=== PATIENT | female | born 1985 | race Caucasian/White ===

== ENCOUNTER 2017-11-04 16:58 | Emergency (ER) | payer OTHER ==
[~2017-11-04] VITALS: Ht 170.2 cm; Wt 122.5 kg
[~2017-11-04 16:58] MED LIST: ADDERALL 30 MG30 MG; ADDERALL 30 MG30 MG PO; ALPRAZOLAM; AMBIEN 5 MG TABL5 M1 PO; AUGMENTIN 875875 M1 PO; BACTRIM DS TAB1 EACH PO; CHLORPROMAZINE100 MG PO; CLONAZEPAM 0.50.5 M1 PO; CLONAZEPAM PO; DIPHENHIST50 MG PO; FLEXERIL PO; HYDROCODON-ACE1 EAC7 PO; HYDROCODONE-AP1 EAC6 PO; IRON325 PO; KEFLEX500 MG PO; KLONOPIN1 MG PO; LAMICTAL100 MG PO; LEVAQUIN 500 M500 M4 PO; LEVOTHYROXIN0.075 MG PO; LOESTRIN1 EAC1 PO; MEDROLDOSEPACK PO; NORCO 5-325 TA1 EACH PO; PERCOCET 5-3251 EACH PO; PREDNISONE 20 M20 M1 PO; PREDNISONE 5 MG5 M1 PO; PRENATAL; PROAIR HFA8.5 GM INH; SYNTHROID100 MC1 PO; TESSALON PERLE100 M1 PO; TRAZODONE HCL100 MG PO; TUMS PO; VENTOLIN HFA INH8 GM INH; VITAMIN E400 UNIT PO; XANAX1 MG PO; ZANAFLEX4 MG PO
[2017-11-04] MEDS ORDERED: NAPROSYN500 MG PO ×3 (17:57→18:10)
[2017-11-04] MEDS ORDERED: NORCO 5-325 TA1 EACH PO ×3 (17:57→18:10)
[2017-11-04] MEDS ORDERED: FLEXERIL PO ×3 (17:57→18:10)
[2017-11-04 18:50] VITALS: BP 163/98
== END 2017-11-04 18:54 | disposition home or self-care (01) ==
LOC: M.ERS 16:58
DX: M25.511 Pain in right shoulder (principal); M79.671 Pain in right foot; F41.9 Anxiety disorder, unspecified; F31.9 Bipolar disorder, unspecified; E03.9 Hypothyroidism, unspecified; Z98.890 Other specified postprocedural states; F17.210 Nicotine dependence, cigarettes, uncomplicated; Z88.1 Allergy status to other antibiotic agents; W18.2XXA Fall in (into) shower or empty bathtub, initial encounter; Y93.89 Activity, other specified; Y92.89 Other specified places as the place of occurrence of the external cause; Y99.8 Other external cause status

== ENCOUNTER 2018-04-05 12:54 | Emergency (ER) | payer OTHER ==
[~2018-04-05] VITALS: Ht 170.2 cm; Wt 115.7 kg
[~2018-04-05 12:54] MED LIST changes: +NAPROSYN500 MG PO
[2018-04-05] MEDS ORDERED: TRAZODONE HCL100 MG PO (13:53)
[2018-04-05 14:17] LABS: URINE BILIRUBIN NEGATIVE (Negative); URINE BLOOD NEGATIVE (Negative); URINE CLARITY CLEAR; URINE COLOR YELLOW; URINE GLUCOSE-RANDOM NEGATIVE (Negative); URINE KETONES NEGATIVE (Negative); URINE LEUKOCYTES-REFLEX NEGATIVE (Negative); URINE NITRITE-REFLEX NEGATIVE (Negative); URINE PROTEIN NEGATIVE (Negative); URINE SPECIFIC GRAVITY 1.025 (1.005-1.030); URINE UROBILINOGEN 0.2 E.U./dl (0.2-1.0)
[2018-04-05 14:23] LABS: AMP/METHAMP Negative (Negative); BARBITURATES Negative (Negative); BENZODIAZEPINES POSITIVE (Negative); COCAINE Negative (Negative); METHADONE Negative (Negative); OPIATES Negative (Negative); PCP Negative (Negative); THC Negative (Negative)
[2018-04-05 14:37] LABS: ABSOLUTE BASOPHILS 0.2 thou/uL (0.0-0.2); ABSOLUTE EOSINOPHILS 0.1 thou/uL (0.0-0.7); ABSOLUTE LYMPHOCYTES 2.5 thou/uL (0.8-5.3); ABSOLUTE MONOCYTES 0.4 thou/uL (0.0-1.2); ABSOLUTE NEUTROPHILS 11.3 thou/uL (1.6-8.1); BASOPHILS 1.1 %; EOSINOPHILS 0.8 %; HEMOGLOBIN 12.8 gm/dL (12.0-15.0); LYMPHOCYTES 17.4 %; MCH 26.4 pg (26.0-34.0); MCHC 32.8 g/dL (28.0-37.0); MCV 80.5 fL (80.0-100.0); MONOCYTES 2.4 %; MPV 8.2 fl. (7.2-11.1); NUCLEATED RBCS 0 /100WBC; PLATELET COUNT* 369 thou/uL (150-400); POLYS 78.3 %; RBC 4.85 mil/uL (4.20-5.00); RDW-CV 14.7 % (10.5-14.5); WBC 14.4 thou/uL (4.0-11.0)
[2018-04-05 14:45] LABS: ANION GAP 6 mmol/L (7-16); BUN 9 mg/dL (7-18); CALCIUM 7.9 mg/dL (8.5-10.1); CHLORIDE 99 mmol/L (98-107); CO2 28 mmol/L (21-32); CREATININE 0.9 mg/dL (0.6-1.3); GLUCOSE 206 mg/dL (70-99); POTASSIUM 3.7 mmol/L (3.5-5.1); SODIUM 133 mmol/L (136-145)
[2018-04-05 14:52] LABS: ALBUMIN 3.1 g/dL (3.4-5.0); ALKALINE PHOSPHATASE 70 U/L (46-116); LIPASE 120 U/L (73-393); SGOT 8 U/L (15-37); SGPT 13 U/L (30-65); TOTAL BILIRUBIN 0.2 mg/dL (<0.1-1.0); TOTAL PROTEIN 6.4 g/dL (6.4-8.2); TROPONIN-I LEVEL <0.06 ng/mL (<0.06)
[2018-04-05 15:11] LABS: APTT 24.4 Seconds (25.0-31.3)
[2018-04-05 16:19] VITALS: BP 128/69
--- NOTE | 2018-04-06 15:29 | EKG ---
[place] [address] ELECTROCARDIOGRAM REPORT Name: LILLIAN ALVARADO Room: [facility]#: [id number] Admission: 04/05/18 Attend Phys: Discharge: 04/05/18 Date of : 83 Report #: [id number] THIS REPORT FOR: //name// [facility] Test Date: 2018-04-05 Test Time: 14:33:05 Pat Name: LILLIAN ALVARADO Department: Room: Gender: F Plater Supervisor: Layla MUSTAFA : 1985 Requested By: Cortney Casas Order Number: [id number] MD: Quique Martínez Measurements Intervals [place] Rate: 59 P: 5 CO: 154 QRS: 23 QRSD: 97 T: 36 QT: 450 QTc: 446 Interpretive Statements Sinus rhythm Baseline wander in lead(s) V2 Compared to ECG 03/23/2015 21:15:57 Sinus tachycardia no longer present Electronically Signed On 04-06-2018 15:29:10 FENCE MAKING MACHINE OPERATOR by Quiuqe Martínez [email or web address] <ELECTRONICALLY SIGNED> By: Quique Martínez MD, [facility] 04/06/18 1529 1433 1433 Quique Martínez MD, [facility] /EPI
== END 2018-04-05 16:20 | disposition home or self-care (01) ==
LOC: M.ERS 12:54
PROVIDERS: Physician Assistant
DX: R55 Syncope and collapse (principal); F41.9 Anxiety disorder, unspecified; F31.9 Bipolar disorder, unspecified; E03.9 Hypothyroidism, unspecified; F90.9 Attention-deficit hyperactivity disorder, unspecified type; F17.210 Nicotine dependence, cigarettes, uncomplicated; Z88.1 Allergy status to other antibiotic agents; Z98.890 Other specified postprocedural states; Z79.899 Other long term (current) drug therapy

== ENCOUNTER 2018-04-26 14:28 | Emergency (ER) | payer OTHER ==
[~2018-04-26] VITALS: Ht 170.2 cm; Wt 124.7 kg
[2018-04-26] MEDS ORDERED: BIRTH CONTROL PO (14:59)
[2018-04-26] MEDS ORDERED: ADDERALL 20 MG20 M1 PO (15:00)
[2018-04-26] MEDS ORDERED: IBUPROFEN 800800 M1 PO (15:20)
[2018-04-26] MEDS ORDERED: KEFLEX500 M1 PO (15:20)
[2018-04-26] MEDS ORDERED: MEDROLDOSEPACK PO (15:20)
[2018-04-26] MEDS ORDERED: ACETAMINOPHEN-1 EAC1 PO (15:20)
[2018-04-26] MEDS ORDERED: AFRIN15 ML NS (15:20)
[2018-04-26 15:27] LABS: INFLUENZA A ANTIGEN None Detected (None Detect); INFLUENZA B ANTIGEN None Detected (None Detect)
[2018-04-26 15:56] VITALS: BP 163/94
== END 2018-04-26 16:00 | disposition home or self-care (01) ==
LOC: M.ERS 14:28
PROVIDERS: Nurse Practitioner Family
DX: J01.90 Acute sinusitis, unspecified (principal); F17.210 Nicotine dependence, cigarettes, uncomplicated; F90.9 Attention-deficit hyperactivity disorder, unspecified type; F31.9 Bipolar disorder, unspecified; F41.9 Anxiety disorder, unspecified; E03.9 Hypothyroidism, unspecified; Z88.1 Allergy status to other antibiotic agents; Z98.890 Other specified postprocedural states

== ENCOUNTER 2018-09-24 16:53 | Emergency (ER) | payer OTHER ==
[~2018-09-24] VITALS: Ht 175.3 cm; Wt 118.4 kg
[~2018-09-24 16:53] MED LIST changes: +ACETAMINOPHEN-1 EAC1 PO; +ADDERALL 20 MG20 M1 PO; +AFRIN15 ML NS; +BIRTH CONTROL PO; +IBUPROFEN 800800 M1 PO; +KEFLEX500 M1 PO
[2018-09-24] MEDS ORDERED: CYTOMEL 5MCG TA5 MCG PO (17:12)
[2018-09-24 17:27] LABS: ABSOLUTE BASOPHILS 0.1 thou/uL (0.0-0.2); ABSOLUTE EOSINOPHILS 0.1 thou/uL (0.0-0.7); ABSOLUTE LYMPHOCYTES 3.1 thou/uL (0.8-5.3); ABSOLUTE MONOCYTES 0.5 thou/uL (0.0-1.2); BASOPHILS 0.5 %; EOSINOPHILS 1.2 %; HEMATOCRIT 43.4 % (37.0-47.0); HEMOGLOBIN 14.3 gm/dL (12.0-15.0); LYMPHOCYTES 26.5 %; MCH 27.5 pg (26.0-34.0); MCHC 32.8 g/dL (28.0-37.0); MCV 83.9 fL (80.0-100.0); MONOCYTES 3.9 %; MPV 8.2 fl. (7.2-11.1); NUCLEATED RBCS 0 /100WBC; PLATELET COUNT* 374 thou/uL (150-400); POLYS 67.9 %; RBC 5.18 mil/uL (4.20-5.00); RDW-CV 14.5 % (10.5-14.5); WBC 11.8 thou/uL (4.0-11.0)
[2018-09-24 17:36] LABS: CALCIUM 8.4 mg/dL (8.5-10.1); CREATININE 0.9 mg/dL (0.6-1.3); POTASSIUM 3.8 mmol/L (3.5-5.1)
[2018-09-24 17:40] LABS: ALBUMIN 3.3 g/dL (3.4-5.0); TOTAL BILIRUBIN 0.2 mg/dL (<0.1-1.0); TOTAL PROTEIN 6.5 g/dL (6.4-8.2)
[2018-09-24 17:43] LABS: URINE BILIRUBIN NEGATIVE (Negative); URINE BLOOD 1+ (Negative); URINE CLARITY CLEAR; URINE COLOR YELLOW; URINE GLUCOSE-RANDOM NEGATIVE (Negative); URINE KETONES NEGATIVE (Negative); URINE LEUKOCYTES-REFLEX NEGATIVE (Negative); URINE NITRITE-REFLEX NEGATIVE (Negative); URINE PROTEIN NEGATIVE (Negative); URINE UROBILINOGEN 0.2 E.U./dl (0.2-1.0)
[2018-09-24 17:51] LABS: AMP/METHAMP POSITIVE (Negative); BARBITURATES Negative (Negative); BENZODIAZEPINES POSITIVE (Negative); COCAINE Negative (Negative); METHADONE Negative (Negative); OPIATES Negative (Negative); PCP Negative (Negative); THC Negative (Negative)
[2018-09-24 17:52] LABS: BACTERIA-REFLEX >30 Many /HPF (None Seen); CASTS None Seen /LPF (None Seen); CRYSTALS None Seen /LPF (None Seen); SQUAMOUS >10 Many /LPF (0-3); URINE RBC 0-2 Rare /HPF (0-2); URINE WBC-REFLEX 0-5 Rare /HPF (0-5)
[2018-09-24] MEDS ORDERED: NORCO 5-325 TA1 EAC1 PO ×2 (18:18→18:20)
[2018-09-24 18:32] VITALS: BP 132/80
[2018-09-24 18:33] LABS: ESR (SEDRATE) 7 mm/hr (0-20)
== END 2018-09-24 18:34 | disposition home or self-care (01) ==
LOC: M.ERS 16:53
PROVIDERS: Physician Assistant
DX: G89.29 Other chronic pain (principal); M79.641 Pain in right hand; M79.642 Pain in left hand; M79.18 Myalgia, other site; F17.210 Nicotine dependence, cigarettes, uncomplicated; F90.9 Attention-deficit hyperactivity disorder, unspecified type; F41.9 Anxiety disorder, unspecified; F31.9 Bipolar disorder, unspecified; E03.9 Hypothyroidism, unspecified; Z88.1 Allergy status to other antibiotic agents; Z98.890 Other specified postprocedural states

== ENCOUNTER 2019-01-03 15:30 | Emergency (ER) | payer OTHER ==
[~2019-01-03] VITALS: Ht 170.2 cm; Wt 113.0 kg
[~2019-01-03 15:30] MED LIST changes: +CYTOMEL 5MCG TA5 MCG PO; +NORCO 5-325 TA1 EAC1 PO
[2019-01-03] MEDS ORDERED: VITAMIN D250000 UNIT PO (15:45)
[2019-01-03] MEDS ORDERED: LIDOCAINE VISC100 ML TOP (16:24)
[2019-01-03] MEDS ORDERED: KEFLEX500 M1 PO (16:24)
[2019-01-03] MEDS ORDERED: NORCO 5-325 TA1 EAC1 PO (16:24)
[2019-01-03] MEDS ORDERED: CAPSAICIN42.5 GM TOP (16:26)
[2019-01-03 16:49] VITALS: BP 145/85
== END 2019-01-03 16:50 | disposition home or self-care (01) ==
LOC: M.ERS 15:30
DX: L53.9 Erythematous condition, unspecified (principal); F31.9 Bipolar disorder, unspecified; F41.9 Anxiety disorder, unspecified; F90.9 Attention-deficit hyperactivity disorder, unspecified type; Z88.1 Allergy status to other antibiotic agents; Z98.890 Other specified postprocedural states

== ENCOUNTER 2019-03-17 22:05 | Emergency (ER) | payer OTHER ==
[~2019-03-17] VITALS: Ht 170.2 cm; Wt 115.7 kg
[~2019-03-17 22:05] MED LIST changes: +CAPSAICIN42.5 GM TOP; +LIDOCAINE VISC100 ML TOP; +VITAMIN D250000 UNIT PO
[2019-03-17] MEDS ORDERED: CYTOMEL50 MCG PO (22:35)
[2019-03-17] MEDS ORDERED: TORADOL 10 MG T10 MG PO (23:38)
[2019-03-17] MEDS ORDERED: OXYCODONE HCL 55 MG PO (23:38)
[2019-03-18 00:05] VITALS: BP 180/101
== END 2019-03-18 00:05 | disposition home or self-care (01) ==
LOC: M.ERS 22:05
DX: K02.9 Dental caries, unspecified (principal); F90.9 Attention-deficit hyperactivity disorder, unspecified type; F41.9 Anxiety disorder, unspecified; F31.9 Bipolar disorder, unspecified; F17.210 Nicotine dependence, cigarettes, uncomplicated; Z98.890 Other specified postprocedural states; Z90.49 Acquired absence of other specified parts of digestive tract; Z88.1 Allergy status to other antibiotic agents

== ENCOUNTER 2019-07-02 17:11 | Emergency (ER) | payer OTHER ==
[~2019-07-02] VITALS: Ht 172.7 cm; Wt 113.4 kg
[~2019-07-02 17:11] MED LIST changes: +CYTOMEL50 MCG PO; +OXYCODONE HCL 55 MG PO; +TORADOL 10 MG T10 MG PO
[2019-07-02] MEDS ORDERED: PENICILLIN V P500 MG PO (17:33)
[2019-07-02] MEDS ORDERED: IBUPROFEN 800800 M1 PO (17:33)
[2019-07-02] MEDS ORDERED: NORCO 5-325 TA1 EAC1 PO (17:33)
[2019-07-02 17:45] VITALS: BP 153/93
== END 2019-07-02 17:46 | disposition home or self-care (01) ==
LOC: M.ERS 17:11
DX: K08.89 Other specified disorders of teeth and supporting structures (principal); F90.9 Attention-deficit hyperactivity disorder, unspecified type; F41.9 Anxiety disorder, unspecified; F31.9 Bipolar disorder, unspecified; F17.210 Nicotine dependence, cigarettes, uncomplicated; Z98.890 Other specified postprocedural states; Z90.49 Acquired absence of other specified parts of digestive tract; Z88.1 Allergy status to other antibiotic agents

== ENCOUNTER 2019-08-09 15:38 | Inpatient (IN) | payer OTHER ==
[~2019-08-09] VITALS: Ht 170.2 cm; Wt 121.6 kg
[~2019-08-09 15:38] MED LIST changes: +PENICILLIN V P500 MG PO
[2019-08-09 16:07] VITALS: BP 189/128
[2019-08-09] MEDS ORDERED: CLONAZEPAM 0.50.5 M1 PO (16:13)
[2019-08-09 16:34] LABS: HEMATOCRIT 45.8 % (37.0-47.0); HEMOGLOBIN 15.6 gm/dL (12.0-15.0); MCV 82.4 fL (80.0-100.0); MPV 7.9 fl. (7.2-11.1); NUCLEATED RBCS 0 /100WBC; PLATELET COUNT* 615 thou/uL (150-400); RBC 5.55 mil/uL (4.20-5.00); RDW-CV 13.8 % (10.5-14.5); WBC 24.2 thou/uL (4.0-11.0)
[2019-08-09 16:47] LABS: CALCIUM 8.9 mg/dL (8.5-10.1); CREATININE 0.9 mg/dL (0.6-1.3); POTASSIUM 3.5 mmol/L (3.5-5.1)
[2019-08-09 16:51] LABS: ALBUMIN 3.9 g/dL (3.4-5.0); TOTAL BILIRUBIN 0.3 mg/dL (<0.1-1.0); TOTAL PROTEIN 8.1 g/dL (6.4-8.2)
[2019-08-09 17:09] LABS: ABSOLUTE LYMPHOCYTES 3.9 thou/uL (0.8-5.3); ABSOLUTE MONOCYTES 0.7 thou/uL (0.0-1.2); ABSOLUTE NEUTROPHILS 19.6 thou/uL (1.6-8.1); ANISOCYTOSIS Occasional; PLATELET ESTIMATE INCREASED
[2019-08-09] MEDS ORDERED: VITAMIN D310 MC3 PO (17:12)
[2019-08-09] MEDS ORDERED: KLONOPIN1 MG PO (17:13)
[2019-08-09] MEDS ORDERED: MAGNESIUM100 MG PO (17:13)
[2019-08-09] MEDS ORDERED: TIZANIDINE HCL4 M1 PO (17:13)
[2019-08-09] MEDS ORDERED: ADDERALL 20 MG20 M1 PO (17:14)
[2019-08-09] MEDS ORDERED: AMBIEN 10 MG TA10 MG PO (17:14)
[2019-08-09 19:45] VITALS: BP 167/97
[2019-08-09 20:30] VITALS: BP 180/110
[2019-08-09 21:30] VITALS: BP 118/69
[2019-08-09] MEDS ORDERED: AMBIEN CR 6.26.25 MG PO (23:04)
[2019-08-10] VITALS (7 sets, daily range): BP systolic 120–200; BP diastolic 73–122
[2019-08-10 05:38] LABS: ABSOLUTE BASOPHILS 0.1 thou/uL (0.0-0.2); ABSOLUTE EOSINOPHILS 0.1 thou/uL (0.0-0.7); ABSOLUTE LYMPHOCYTES 3.4 thou/uL (0.8-5.3); ABSOLUTE MONOCYTES 0.5 thou/uL (0.0-1.2); ABSOLUTE NEUTROPHILS 6.1 thou/uL (1.6-8.1); BASOPHILS 1.2 %; HEMATOCRIT 38.9 % (37.0-47.0); MCH 28.6 pg (26.0-34.0); MCHC 34.4 g/dL (28.0-37.0); MCV 83.1 fL (80.0-100.0); MONOCYTES 4.5 %; MPV 7.8 fl. (7.2-11.1); NUCLEATED RBCS 0 /100WBC; POLYS 60.3 %; RBC 4.68 mil/uL (4.20-5.00); WBC 10.2 thou/uL (4.0-11.0)
[2019-08-10 05:51] LABS: CALCIUM 8.8 mg/dL (8.5-10.1); CREATININE 0.8 mg/dL (0.6-1.3); POTASSIUM 3.5 mmol/L (3.5-5.1)
[2019-08-10 05:55] LABS: HEMOGLOBIN 13.4 gm/dL (12.0-15.0); PLATELET COUNT* 436 thou/uL (150-400)
--- NOTE | 2019-08-10 07:12 | NUR ---
PT RECIEVED FROM ED IN ROOM 206. ALERT AND ORIENTED X4. C/O PAIN, MEDICATION GIVEN PER EMAR. DENIES SOB. CALL LIGHT WITHIN REACH AND BED IN LOW POSITION. HOURLY ROUNDING DONE FOR PT SAFETY.
[2019-08-10 11:00] LABS: URINE BILIRUBIN NEGATIVE (Negative); URINE BLOOD 3+ (Negative); URINE CLARITY CLEAR; URINE COLOR YELLOW; URINE GLUCOSE-RANDOM NEGATIVE (Negative); URINE KETONES NEGATIVE (Negative); URINE LEUKOCYTES-REFLEX NEGATIVE (Negative); URINE NITRITE-REFLEX NEGATIVE (Negative); URINE PROTEIN NEGATIVE (Negative); URINE SPECIFIC GRAVITY <= 1.005 (1.005-1.030); URINE UROBILINOGEN 0.2 E.U./dl (0.2-1.0)
[2019-08-10 11:07] LABS: AMP/METHAMP Negative (Negative); BARBITURATES Negative (Negative); BENZODIAZEPINES Negative (Negative); COCAINE Negative (Negative); METHADONE Negative (Negative); OPIATES POSITIVE (Negative); PCP Negative (Negative); THC Negative (Negative)
[2019-08-10 11:10] LABS: BACTERIA-REFLEX 1-9 Few /HPF (None Seen); SQUAMOUS 4-10 Moderate /LPF (0-3); URINE RBC 0-2 Rare /HPF (0-2); URINE WBC-REFLEX 0-5 Rare /HPF (0-5)
[2019-08-10 11:11] LABS: CASTS None Seen /LPF (None Seen); CRYSTALS None Seen /LPF (None Seen); MUCUS None Seen strn/LPF (None Seen)
--- NOTE | 2019-08-10 16:37 | NUR ---
ASSUMED PT CARE REPORT RECEIVED FROM NURSE. PT IS AOX4. ON RA. TRACING SR BBB ON ELECTRIC CLOCK MECHANIC. VS TAKEN. BP IS ELEVATED. SBP 180-190s. PT IS ASYMPTOMATIC. BP MEDICATION PRESCRIBED AFTER PHYSICIAN WAS NOTIFIED. PT COMPLAINS OF ANXIETY AND PAIN. MEDICATION AND ANTIANXIETY MEDS GIVEN S ORDERED. PT HAS GOOD APPETITE. COVID RESULT CAME BACK NON-DETECTED. NEW IV PLACED IN RIGHT AC. IV FLUID INFUSING ORDERED. IV ANTIBIOTIC GIVEN. PT INSTRUCTED TO CALL NURSE LINE IF SHE FEELS DIZZY AND HAS VERTIGO. WILL CONTINUE TO MONITOR
--- NOTE | 2019-08-10 18:36 | NUR ---
PT'S BP HAS BEEN ELEVATED ALL DAY LONG EVEN WHEN ANTI-HYPERTENSIVE WERE GIVEN. SEE E ADRIANE. NOTIFIED. ANTI HYPERTENSIVE ORDERED ANF GIVEN ORDERED. PT REMAINS ASYMPTOMATIC. IS A LITTLE ANXIOUS AND SUFFERS FROM CHRONIC PAIN. MEDICATION AND ANTI ANXIETY MEDS GIVEN
[2019-08-11] VITALS: BP 170/84
[2019-08-11 04:20] VITALS: BP 110/63
--- NOTE | 2019-08-11 05:05 | NUR ---
PT CARE ASSUMED AT 1930. SAT MAINTAINED IN RA. BP ELEVATED, PHYSICIAN NOTIFIED, MEDICATION GIVEN PER EMAR. C/O PAIN, MEDICATION GIVEN PER EMAR. CALL LIGHT WITHIN REACH AND BED IN LOW POSITION. HOURLY ROUNDING DONE FOR PT SAFETY.
--- NOTE | 2019-08-11 07:36 | EKG ---
[place] [address] ELECTROCARDIOGRAM REPORT Name: LILLIAN ALVARADO Room: [address] ADM IN .R.#: [id number] Admission: 08/09/19 Attend Phys: Shahbaz Roy Discharge: Date of : 83 Date of Service: 08/09/19 1626 Report #: [id number] THIS REPORT FOR: //name// [facility] ED Test Date: 2019-08-09 Test Time: 16:26:02 Pat Name: LILLIAN ALVARADO Department: Room: [facility] Gender: F Taper And Floater: FABIAN : 1985 Requested By: Marcie Roman Order Number: [id number] MD: Ben Felton Measurements Intervals [place] Rate: 146 P: 21 NV: 128 QRS: 6 QRSD: 77 T: 129 QT: 296 QTc: 462 Interpretive Statements Sinus tachycardia Possible left atrial enlargement Abnormal T, consider ischemia, lateral leads Compared to ECG 04/05/2018 14:33:05 T-wave abnormality now present Possible ischemia now present Sinus rhythm no longer present Electronically Signed On 08-11-2019 7:35:59 CDT by Ben Felton [email or web address] <ELECTRONICALLY SIGNED> By: Ben Felton MD, FACC 08/11/19 0735 1626 1626 Ben Felton MD, [facility] /EPI
[2019-08-11 08:00] VITALS: BP 157/87
[2019-08-11 12:22] VITALS: BP 173/117
[2019-08-11] MEDS ORDERED: NORVASC5 MG PO (12:56)
[2019-08-11] MEDS ORDERED: LEVAQUIN 500 M500 M2 PO (12:56)
[2019-08-11] MEDS ORDERED: BENAZEPRIL HCL20 MG PO (12:56)
[2019-08-11 14:01] VITALS: BP 173/117
--- NOTE | 2019-08-11 15:04 | NUR ---
PT IS AOX4. ON RA. TRACING SR ON BARBER SHOP OPERATOR. VSS. NICOTINE PATCH GIVEN. DISCHARGE ORDERED. NEW SCRIPTS GIVEN. IV LINE REMOVED. HEART MONITOR RETRIEVED. PT LEFT UNIT AT 1445 ACCOMPANIED BY NURSE STAFF ON WHEELCHAIR. PICKED UP.
== END 2019-08-11 14:45 | disposition home or self-care (01) | DRG 871 ==
LOC: M.ERS 15:38 → M.TBA-ER 17:06 → M.2W 19:59
PROVIDERS: Physician Assistant; ADMIT Internal Medicine; ATTEND Internal Medicine
DX: A41.9 Sepsis, unspecified organism (principal); J15.6 Pneumonia due to other Gram-negative bacteria; Z68.41 Body mass index [BMI] 40.0-44.9, adult; N39.0 Urinary tract infection, site not specified; F90.9 Attention-deficit hyperactivity disorder, unspecified type; F41.9 Anxiety disorder, unspecified; F31.9 Bipolar disorder, unspecified; E89.0 Postprocedural hypothyroidism; F17.210 Nicotine dependence, cigarettes, uncomplicated; E86.0 Dehydration; E66.9 Obesity, unspecified; I10 Essential (primary) hypertension; G47.00 Insomnia, unspecified; Z20.828 Contact with and (suspected) exposure to other viral communicable diseases; M62.838 Other muscle spasm; Z88.1 Allergy status to other antibiotic agents; Z79.899 Other long term (current) drug therapy; Z79.2 Long term (current) use of antibiotics

== ENCOUNTER 2019-11-09 14:13 | Emergency (ER) | payer OTHER ==
[~2019-11-09] VITALS: Ht 170.2 cm; Wt 113.4 kg
[~2019-11-09 14:13] MED LIST changes: +AMBIEN 10 MG TA10 MG PO; +AMBIEN CR 6.26.25 MG PO; +BENAZEPRIL HCL20 MG PO; +LEVAQUIN 500 M500 M2 PO; +MAGNESIUM100 MG PO; +NORVASC5 MG PO; +TIZANIDINE HCL4 M1 PO; +VITAMIN D310 MC3 PO
[2019-11-09] MEDS ORDERED: NORCO 5-325 TA1 EAC2 PO (16:30)
[2019-11-09] MEDS ORDERED: COLACE100 MG PO (16:30)
[2019-11-09] MEDS ORDERED: IBU600 MG PO (16:30)
[2019-11-09 16:39] VITALS: BP 169/104
== END 2019-11-09 16:40 | disposition home or self-care (01) ==
LOC: M.ERS 14:13
DX: S20.211A Contusion of right front wall of thorax, initial encounter (principal); S90.01XA Contusion of right ankle, initial encounter; S70.01XA Contusion of right hip, initial encounter; E66.01 Morbid (severe) obesity due to excess calories; F41.9 Anxiety disorder, unspecified; F31.9 Bipolar disorder, unspecified; F17.210 Nicotine dependence, cigarettes, uncomplicated; Z68.39 Body mass index [BMI] 39.0-39.9, adult; Z98.890 Other specified postprocedural states; Z90.49 Acquired absence of other specified parts of digestive tract; Z88.1 Allergy status to other antibiotic agents; W10.8XXA Fall (on) (from) other stairs and steps, initial encounter; Y93.89 Activity, other specified; Y92.89 Other specified places as the place of occurrence of the external cause; Y99.8 Other external cause status

== ENCOUNTER 2019-12-17 07:43 | Emergency (ER) | payer OTHER ==
[~2019-12-17] VITALS: Ht 170.2 cm; Wt 113.4 kg
[~2019-12-17 07:43] MED LIST changes: +COLACE100 MG PO; +IBU600 MG PO; +NORCO 5-325 TA1 EAC2 PO
[2019-12-17 08:20] LABS: URINE BILIRUBIN NEGATIVE (Negative); URINE BLOOD TRACE (Negative); URINE CLARITY CLEAR; URINE COLOR YELLOW; URINE GLUCOSE-RANDOM 1+ (Negative); URINE KETONES NEGATIVE (Negative); URINE LEUKOCYTES-REFLEX NEGATIVE (Negative); URINE NITRITE-REFLEX NEGATIVE (Negative); URINE PROTEIN 1+ (Negative); URINE SPECIFIC GRAVITY 1.025 (1.005-1.030); URINE UROBILINOGEN 0.2 E.U./dl (0.2-1.0)
[2019-12-17 08:36] LABS: HEMOGLOBIN 13.5 gm/dL (12.0-15.0); MCH 26.8 pg (26.0-34.0); MCV 81.2 fL (80.0-100.0); MPV 7.6 fl. (7.2-11.1); NUCLEATED RBCS 0 /100WBC; PLATELET COUNT* 551 thou/uL (150-400); RBC 5.05 mil/uL (4.20-5.00); RDW-CV 14.8 % (10.5-14.5); WBC 18.6 thou/uL (4.0-11.0)
[2019-12-17 08:46] LABS: CREATININE 1.2 mg/dL (0.6-1.3); POTASSIUM 3.1 mmol/L (3.5-5.1)
[2019-12-17 08:53] LABS: TOTAL BILIRUBIN 0.8 mg/dL (<0.1-1.0); TOTAL PROTEIN 8.1 g/dL (6.4-8.2)
[2019-12-17 09:12] LABS: ABSOLUTE LYMPHOCYTES 2.2 thou/uL (0.8-5.3); ABSOLUTE MONOCYTES 0.2 thou/uL (0.0-1.2); ABSOLUTE NEUTROPHILS 16.2 thou/uL (1.6-8.1); PLATELET ESTIMATE ADEQUATE
[2019-12-17] MEDS ORDERED: PHENERGAN 25 MG25 M1 PO (10:11)
[2019-12-17] MEDS ORDERED: ACETAMINOPHEN-1 EAC2 PO (10:11)
[2019-12-17 10:53] VITALS: BP 160/98
== END 2019-12-17 10:53 | disposition home or self-care (01) ==
LOC: M.ERS 07:43
PROVIDERS: Personal Emergency Response Attendant
DX: R10.84 Generalized abdominal pain (principal); R11.2 Nausea with vomiting, unspecified; E89.0 Postprocedural hypothyroidism; E66.01 Morbid (severe) obesity due to excess calories; F17.210 Nicotine dependence, cigarettes, uncomplicated; Z98.890 Other specified postprocedural states; Z88.1 Allergy status to other antibiotic agents; Z68.39 Body mass index [BMI] 39.0-39.9, adult

== ENCOUNTER 2020-02-16 01:56 | Emergency (ER) | payer OTHER ==
[~2020-02-16] VITALS: Ht 170.2 cm; Wt 113.4 kg
[~2020-02-16 01:56] MED LIST changes: +ACETAMINOPHEN-1 EAC2 PO; +PHENERGAN 25 MG25 M1 PO
[2020-02-16] MEDS ORDERED: PHENERGAN 25 MG25 M1 PO ×2 (02:14→04:47)
[2020-02-16 02:32] LABS: ABSOLUTE EOSINOPHILS 0.2 thou/uL (0.0-0.7); HEMOGLOBIN 15.6 gm/dL (12.0-15.0)
[2020-02-16 02:36] LABS: CALCIUM 9.6 mg/dL (8.5-10.1)
[2020-02-16 02:37] LABS: POTASSIUM 3.7 mmol/L (3.5-5.1)
[2020-02-16 02:40] LABS: ALBUMIN 4.9 g/dL (3.4-5.0); TOTAL BILIRUBIN 0.5 mg/dL (<0.1-1.0); TOTAL PROTEIN 9.1 g/dL (6.4-8.2)
[2020-02-16 02:41] LABS: ABSOLUTE BASOPHILS 0.1 thou/uL (0.0-0.2); ABSOLUTE LYMPHOCYTES 4.9 thou/uL (0.8-5.3); ABSOLUTE MONOCYTES 0.5 thou/uL (0.0-1.2); ABSOLUTE NEUTROPHILS 10.8 thou/uL (1.6-8.1); BASOPHILS 0.7 %; HEMATOCRIT 46.4 % (37.0-47.0); LYMPHOCYTES 29.9 %; MCH 26.9 pg (26.0-34.0); MCHC 33.6 g/dL (28.0-37.0); MCV 79.9 fL (80.0-100.0); MONOCYTES 2.9 %; MPV 7.7 fl. (7.2-11.1); NUCLEATED RBCS 0 /100WBC; PLATELET COUNT* 593 thou/uL (150-400); POLYS 65.5 %; RBC 5.81 mil/uL (4.20-5.00); RDW-CV 14.9 % (10.5-14.5); WBC 16.5 thou/uL (4.0-11.0)
[2020-02-16 04:03] LABS: URINE BILIRUBIN NEGATIVE (Negative); URINE BLOOD NEGATIVE (Negative); URINE CLARITY CLEAR; URINE COLOR YELLOW; URINE GLUCOSE-RANDOM NEGATIVE (Negative); URINE KETONES NEGATIVE (Negative); URINE LEUKOCYTES-REFLEX TRACE (Negative); URINE NITRITE-REFLEX NEGATIVE (Negative); URINE PROTEIN NEGATIVE (Negative); URINE SPECIFIC GRAVITY <= 1.005 (1.005-1.030); URINE UROBILINOGEN 0.2 E.U./dl (0.2-1.0)
[2020-02-16 04:21] LABS: CASTS None Seen /LPF (None Seen); SQUAMOUS >10 Many /LPF (0-3); URINE RBC None Seen /HPF (0-2); URINE WBC-REFLEX 0-5 Rare /HPF (0-5)
[2020-02-16 04:22] LABS: CRYSTALS None Seen /LPF (None Seen)
[2020-02-16] MEDS ORDERED: PROTONIX40 MG PO (04:47)
[2020-02-16] MEDS ORDERED: BENTYL 20 MG TA20 M1 PO (04:47)
[2020-02-16] MEDS ORDERED: HYDROCODON-ACE1 EAC8 PO (04:47)
[2020-02-16 05:00] VITALS: BP 148/72
== END 2020-02-16 05:00 | disposition home or self-care (01) ==
LOC: M.ERS 01:56
PROVIDERS: Emergency Medicine
DX: R10.33 Periumbilical pain (principal); R11.2 Nausea with vomiting, unspecified; F17.210 Nicotine dependence, cigarettes, uncomplicated; Z90.89 Acquired absence of other organs; Z79.899 Other long term (current) drug therapy; Z88.1 Allergy status to other antibiotic agents

== ENCOUNTER 2020-07-04 12:42 | Emergency (ER) | payer OTHER ==
[~2020-07-04] VITALS: Ht 170.2 cm; Wt 113.4 kg
[~2020-07-04 12:42] MED LIST changes: +BENTYL 20 MG TA20 M1 PO; +HYDROCODON-ACE1 EAC8 PO; +PROTONIX40 MG PO
[2020-07-04] MEDS ORDERED: THYROID (12:55)
[2020-07-04 13:40] LABS: HEMATOCRIT 27.4 % (37.0-47.0); HEMOGLOBIN 8.9 gm/dL (12.0-15.0); MCH 24.1 pg (26.0-34.0); MCHC 32.4 g/dL (28.0-37.0); MCV 74.4 fL (80.0-100.0); MPV 7.5 fl. (7.2-11.1); NUCLEATED RBCS 0 /100WBC; PLATELET COUNT* 407 thou/uL (150-400); RBC 3.68 mil/uL (4.20-5.00); RDW-CV 16.7 % (10.5-14.5); WBC 9.7 thou/uL (4.0-11.0)
[2020-07-04 13:47] LABS: APTT 25.6 Seconds (25.0-31.3); PROTIME 10.2 Seconds (9.20-11.50)
[2020-07-04 14:08] LABS: ABSOLUTE BASOPHILS 0.3 thou/uL (0.0-0.2); ABSOLUTE EOSINOPHILS 0.2 thou/uL (0.0-0.7); ABSOLUTE LYMPHOCYTES 1.4 thou/uL (0.8-5.3); ABSOLUTE MONOCYTES 0.2 thou/uL (0.0-1.2); ABSOLUTE NEUTROPHILS 7.7 thou/uL (1.6-8.1)
[2020-07-04 14:09] LABS: HYPOCHROMASIA 1+; PLATELET ESTIMATE INCREASED
[2020-07-04 14:10] LABS: MICROCYTES 1+
[2020-07-04 15:21] VITALS: BP 139/102
== END 2020-07-04 15:23 | disposition home or self-care (01) ==
LOC: M.ERS 12:42
PROVIDERS: Physician Assistant
DX: S39.012A Strain of muscle, fascia and tendon of lower back, initial encounter (principal); S70.11XA Contusion of right thigh, initial encounter; D64.9 Anemia, unspecified; D47.3 Essential (hemorrhagic) thrombocythemia; F17.210 Nicotine dependence, cigarettes, uncomplicated; E66.01 Morbid (severe) obesity due to excess calories; Z68.39 Body mass index [BMI] 39.0-39.9, adult; E89.0 Postprocedural hypothyroidism; Z98.890 Other specified postprocedural states; Z88.1 Allergy status to other antibiotic agents; W18.39XA Other fall on same level, initial encounter; Y93.89 Activity, other specified; Y92.89 Other specified places as the place of occurrence of the external cause; Y99.8 Other external cause status

== ENCOUNTER 2020-09-17 17:01 | Emergency (ER) | payer OTHER ==
[~2020-09-17] VITALS: Ht 172.7 cm; Wt 145.2 kg
[~2020-09-17 17:01] MED LIST changes: +THYROID
[2020-09-17 17:48] LABS: URINE BILIRUBIN NEGATIVE (Negative); URINE BLOOD NEGATIVE (Negative); URINE CLARITY CLEAR; URINE COLOR YELLOW; URINE GLUCOSE-RANDOM NEGATIVE (Negative); URINE KETONES NEGATIVE (Negative); URINE LEUKOCYTES-REFLEX NEGATIVE (Negative); URINE NITRITE-REFLEX NEGATIVE (Negative); URINE PROTEIN NEGATIVE (Negative); URINE SPECIFIC GRAVITY 1.025 (1.005-1.030); URINE UROBILINOGEN 0.2 E.U./dl (0.2-1.0)
[2020-09-17 17:50] LABS: ABSOLUTE BASOPHILS 0.2 thou/uL (0.0-0.2); ABSOLUTE EOSINOPHILS 0.1 thou/uL (0.0-0.7); ABSOLUTE LYMPHOCYTES 1.8 thou/uL (0.8-5.3); ABSOLUTE MONOCYTES 0.5 thou/uL (0.0-1.2); ABSOLUTE NEUTROPHILS 11.9 thou/uL (1.6-8.1); BASOPHILS 1.4 %; EOSINOPHILS 0.4 %; HEMATOCRIT 33.4 % (37.0-47.0); HEMOGLOBIN 10.7 gm/dL (12.0-15.0); LYMPHOCYTES 12.6 %; MCH 23.9 pg (26.0-34.0); MCHC 32.1 g/dL (28.0-37.0); MCV 74.5 fL (80.0-100.0); MONOCYTES 3.7 %; MPV 7.5 fl. (7.2-11.1); NUCLEATED RBCS 0 /100WBC; PLATELET COUNT* 541 thou/uL (150-400); POLYS 81.9 %; RBC 4.48 mil/uL (4.20-5.00); RDW-CV 16.4 % (10.5-14.5); WBC 14.6 thou/uL (4.0-11.0)
[2020-09-17 17:54] LABS: CALCIUM 8.7 mg/dL (8.5-10.1); CREATININE 1.1 mg/dL (0.6-1.3); POTASSIUM 3.1 mmol/L (3.5-5.1)
[2020-09-17 17:56] LABS: AMP/METHAMP POSITIVE (Negative); BARBITURATES Negative (Negative); BENZODIAZEPINES Negative (Negative); COCAINE Negative (Negative); METHADONE Negative (Negative); OPIATES Negative (Negative); PCP Negative (Negative); THC Negative (Negative)
[2020-09-17 17:59] LABS: ALBUMIN 4.1 g/dL (3.4-5.0); TOTAL BILIRUBIN 0.7 mg/dL (<0.1-1.0); TOTAL PROTEIN 7.1 g/dL (6.4-8.2)
[2020-09-17 18:11] LABS: ALCOHOL < 10 mg/dL (<10); SALICYLATE 4.1 mg/dL (2.8-20.0)
[2020-09-17 18:13] LABS: ACETAMINOPHEN < 2 ug/mL (10-30)
[2020-09-18 02:59] VITALS: BP 110/62
== END 2020-09-18 02:59 | disposition home or self-care (01) ==
LOC: M.ERS 17:01
PROVIDERS: Emergency Medicine Emergency Medical Services
DX: T45.0X1A Poisoning by antiallergic and antiemetic drugs, accidental (unintentional), initial encounter (principal); F15.10 Other stimulant abuse, uncomplicated; F31.9 Bipolar disorder, unspecified; F17.210 Nicotine dependence, cigarettes, uncomplicated; Z88.1 Allergy status to other antibiotic agents; Z79.899 Other long term (current) drug therapy; Z98.890 Other specified postprocedural states; Y92.89 Other specified places as the place of occurrence of the external cause